=== PATIENT | male | born 1930 | race Caucasian/White ===

== ENCOUNTER 2017-07-25 09:22 | Emergency (ER) | payer MEDICARE ==
[~2017-07-25] VITALS: Ht 182.9 cm; Wt 72.6 kg
[~2017-07-25 09:22] MED LIST: CARDIZEM CD120 MG PO; COUMADIN 10MG T10 M1 PO; COUMADIN 5 MG TA5 M1 PO; JANTOVEN5 MG PO; MINOCIN100 MG PO; NOHOMEMEDICATIONS; SIMVASTATIN40 MG PO
[2017-07-25] MEDS ORDERED: BLOOD PRESSURE MED (09:32)
[2017-07-25 09:37] LABS: ABSOLUTE EOSINOPHILS 0.1 thou/uL (0.0-0.7); ABSOLUTE LYMPHOCYTES 2.2 thou/uL (0.8-5.3); ABSOLUTE MONOCYTES 0.7 thou/uL (0.0-1.2); ABSOLUTE NEUTROPHILS 3.1 thou/uL (1.6-8.1); BASOPHILS 0.4 %; EOSINOPHILS 1.9 %; HEMATOCRIT 40.9 % (42.0-52.0); HEMOGLOBIN 13.6 gm/dL (14.0-18.0); MCH 29.5 pg (26.0-34.0); MCHC 33.3 g/dL (28.0-37.0); MCV 88.6 fL (80.0-100.0); MONOCYTES 11.3 %; MPV 6.8 fl. (7.2-11.1); NUCLEATED RBCS 0 /100WBC; PLATELET COUNT* 243 thou/uL (150-400); POLYS 50.4 %; RBC 4.61 mil/uL (4.50-6.00); RDW-CV 14.1 % (10.5-14.5); WBC 6.1 thou/uL (4.0-11.0)
[2017-07-25 09:48] LABS: APTT 75.3 Seconds (25.0-31.3); PROTIME 73.8 Seconds (9.20-11.50)
[2017-07-25 09:50] LABS: INR 7.8
[2017-07-25 10:26] VITALS: BP 129/80
== END 2017-07-25 10:27 | disposition home or self-care (01) ==
LOC: M.ERS 09:22
PROVIDERS: Family Medicine
DX: R79.1 Abnormal coagulation profile (principal); Z98.890 Other specified postprocedural states

== ENCOUNTER 2018-09-05 10:11 | Emergency (ER) | payer MEDICARE ==
[~2018-09-05] VITALS: Ht 170.2 cm; Wt 68.0 kg
[~2018-09-05 10:11] MED LIST changes: +BLOOD PRESSURE MED
[2018-09-05] MEDS ORDERED: XARELTO2.5 MG PO (10:28)
[2018-09-05] MEDS ORDERED: AMOXICILLIN 50500 MG PO (10:44)
[2018-09-05 10:52] VITALS: BP 134/76
== END 2018-09-05 10:53 | disposition home or self-care (01) ==
LOC: M.ERS 10:11
DX: H66.91 Otitis media, unspecified, right ear (principal)

== ENCOUNTER 2018-09-12 10:56 | Emergency (ER) | payer MEDICARE ==
[~2018-09-12] VITALS: Ht 182.9 cm; Wt 74.8 kg
[~2018-09-12 10:56] MED LIST changes: +AMOXICILLIN 50500 MG PO; +XARELTO2.5 MG PO
[2018-09-12 11:01] VITALS: BP 142/76
[2018-09-12] MEDS ORDERED: CIPRODEX OTIC7.5 ML OTIC (11:45)
== END 2018-09-12 12:00 | disposition home or self-care (01) ==
LOC: M.ERS 10:56
DX: H60.91 Unspecified otitis externa, right ear (principal)